=== PATIENT | female | born 1950 | race Caucasian/White ===

== ENCOUNTER → 2024-05-18 07:16 | Outpatient (REF) | payer OTHER, SELFPAY ==
[2024-05-18 09:48] LABS: % Basophils 0.7 % (0-2); % Eosinophils 2.7 % (0-6); % Immature Granulocytes 0.3 % (0-0.5); % Lymphocytes 19.4 % (20.5-51.1); % Monocytes 6.8 % (1.7-9.3); % Neutrophils 70.1 % (42.2-75.2); Absolute Basophils 0.1 10^3/uL (0-0.2); Absolute Eosinophils 0.2 10^3/uL (0-0.7); Absolute Lymphocytes 1.5 10^3/uL (1.2-3.4); Absolute Monocytes 0.5 10^3/uL (0.1-0.6); Absolute Neutrophils 5.3 10^3/uL (1.4-6.5); Hemoglobin 12.4 g/dL (12.0-16.0); Mean Corp Hgb Conc. 33.5 g/dL (33.0-37.0); Mean Corpuscular Hgb 28.8 pg (27.0-31.0); Mean Corpuscular Volume 85.8 fL (81.0-99.0); Mean Platelet Volume 9.6 fL (7.4-10.4); Nucleated Red Blood Cells % 0 %; Platelet Count 395 10^3/uL (130-400); Red Blood Cell Count 4.31 10^6/uL (4.20-5.40); Red Cell Dist. Width 12.7 % (11.5-14.5); White Blood Cell Count 7.5 10^3/uL (4.8-10.8)
[2024-05-18 10:08] LABS: ALT (SGPT) 31 U/L (0-35); AST (SGOT) 28 U/L (14-36); Albumin 4.4 g/dl (3.5-5.0); Alkaline Phosphatase 69 U/L (38-126); Blood Urea Nitrogen 15 mg/dl (7-17); Calcium 9.7 mg/dl (8.4-10.2); Carbon Dioxide 31 mmol/L (22-30); Chloride 99 mmol/L (98-107); Glucose 114 mg/dl (70-99); HDL Cholesterol 80 mg/dl; LDL Cholesterol, Calculated 48 mg/dl; Potassium 4.3 mmol/L (3.5-5.1); Sodium 142 mmol/L (135-145); Total Bilirubin 0.4 mg/dl (0.2-1.3); Total Cholesterol 142 mg/dl (50-199); Total Protein 7.2 g/dl (6.3-8.2); Triglyceride 73 mg/dl (10-149); Very Low Density Lipoprotein 14 mg/dl (0-30); eGFR > 60.00
[2024-05-18 10:16] LABS: Glycohemoglobin (HgbA1c) 6.1 % (4.0-5.6)
[2024-05-18 10:36] LABS: TSH 2.01 uIU/ml (0.47-4.68)
== END ==
LOC: HWLAB 07:16
PROVIDERS: ATTENDING PHYSICIAN Nurse Practitioner
DX: I10 Essential (primary) hypertension (principal); R73.03 Prediabetes; D86.9 Sarcoidosis, unspecified; I45.10 Unspecified right bundle-branch block; Z68.41 Body mass index [BMI] 40.0-44.9, adult
CPT/HCPCS: 36415; 80053; 80061; 83036; 84443; 85025

== ENCOUNTER → 2024-06-13 07:47 | Outpatient (REF) | payer OTHER, SELFPAY | LOC: HWWDC 07:47 | PROVIDERS: ATTENDING PHYSICIAN Nurse Practitioner | DX: Z12.31 Encounter for screening mammogram for malignant neoplasm of breast (principal); Z13.820 Encounter for screening for osteoporosis | CPT/HCPCS: 77063; 77067; 77080 ==

== ENCOUNTER → 2024-08-31 09:34 | Outpatient (REF) | payer OTHER, SELFPAY | LOC: RAD 09:34 | PROVIDERS: ATTENDING PHYSICIAN Nurse Practitioner Adult Health; FAMILY PHYSICIAN Internal Medicine | DX: D86.9 Sarcoidosis, unspecified (principal); R05.3 Chronic cough; J98.4 Other disorders of lung | CPT/HCPCS: 71046 ==

== ENCOUNTER → 2025-03-26 07:33 | Outpatient (REF) | payer OTHER, SELFPAY ==
[2025-03-26 12:57] LABS: Lyme Antibody Screen, EIA Negative (Negative)
== END ==
LOC: HWLAB 07:33
PROVIDERS: ATTENDING PHYSICIAN Nurse Practitioner
DX: A69.20 Lyme disease, unspecified (principal)
CPT/HCPCS: 36415; 86618

== ENCOUNTER → 2025-04-25 11:26 | Outpatient (REF) | payer OTHER, SELFPAY ==
[2025-04-25 16:18] LABS: Blood Urea Nitrogen 18 mg/dl (7-17); Calcium 10.3 mg/dl (8.4-10.2); Carbon Dioxide 31 mmol/L (22-30); Chloride 101 mmol/L (98-107); Glucose 106 mg/dl (70-99); Potassium 4.7 mmol/L (3.5-5.1); Sodium 138 mmol/L (135-145); eGFR > 60.00
[2025-04-25 16:23] LABS: Hematocrit 36.1 % (37.0-47.0); Hemoglobin 11.5 g/dL (12.0-16.0); Mean Corp Hgb Conc. 31.9 g/dL (33.0-37.0); Mean Corpuscular Volume 84.0 fL (81.0-99.0); Nucleated Red Blood Cells % 0 %; Platelet Count 474 10^3/uL (130-400); Red Cell Dist. Width 14.3 % (11.5-14.5)
== END ==
LOC: HWLAB 11:26
PROVIDERS: ATTENDING PHYSICIAN Orthopaedic Surgery; FAMILY PHYSICIAN Internal Medicine
DX: Z01.818 Encounter for other preprocedural examination (principal)
CPT/HCPCS: 36415; 80048; 85025

== ENCOUNTER → 2025-06-18 10:10 | Outpatient (REF) | payer OTHER, SELFPAY ==
[2025-06-18 11:23] LABS: ALT (SGPT) 28 U/L (0-35); AST (SGOT) 21 U/L (14-36); Albumin 4.1 g/dl (3.5-5.0); Alkaline Phosphatase 79 U/L (38-126); Blood Urea Nitrogen 30 mg/dl (7-17); Calcium 10.1 mg/dl (8.4-10.2); Carbon Dioxide 31 mmol/L (22-30); Chloride 96 mmol/L (98-107); Glucose 120 mg/dl (70-99); Potassium 4.1 mmol/L (3.5-5.1); Sodium 141 mmol/L (135-145); Total Protein 7.4 g/dl (6.3-8.2); eGFR 36.34
== END ==
LOC: REG 10:10
PROVIDERS: ATTENDING PHYSICIAN Nurse Practitioner
DX: R10.9 Unspecified abdominal pain (principal)
CPT/HCPCS: 36415; 80053

== ENCOUNTER → 2025-06-20 13:36 | Outpatient (REF) | payer OTHER, SELFPAY | LOC: HWRAD 13:36 | PROVIDERS: ATTENDING PHYSICIAN Nurse Practitioner | DX: R10.9 Unspecified abdominal pain (principal); R10.32 Left lower quadrant pain | CPT/HCPCS: 74176 ==

== ENCOUNTER → 2025-06-27 08:15 | Outpatient (REF) | payer OTHER, SELFPAY ==
[2025-06-27 09:36] LABS: Hematocrit 33.9 % (37.0-47.0); Hemoglobin 10.8 g/dL (12.0-16.0); Mean Corp Hgb Conc. 31.9 g/dL (33.0-37.0); Mean Corpuscular Volume 83.7 fL (81.0-99.0); Nucleated Red Blood Cells % 0 %; Platelet Count 571 10^3/uL (130-400); Red Cell Dist. Width 13.9 % (11.5-14.5)
[2025-06-27 09:40] LABS: INR 0.99; PT 13.6 Sec (11.4-14.6)
[2025-06-27 10:11] LABS: ALT (SGPT) 28 U/L (0-35); AST (SGOT) 22 U/L (14-36); Albumin 4.0 g/dl (3.5-5.0); Alkaline Phosphatase 77 U/L (38-126); Blood Urea Nitrogen 36 mg/dl (7-17); Calcium 9.4 mg/dl (8.4-10.2); Carbon Dioxide 28 mmol/L (22-30); Chloride 96 mmol/L (98-107); Glucose 122 mg/dl (70-99); Potassium 3.4 mmol/L (3.5-5.1); Sodium 137 mmol/L (135-145); Total Protein 7.0 g/dl (6.3-8.2); eGFR 20.68
[2025-06-27 10:36] LABS: CEA 2.55 ng/ml
[2025-06-28 18:52] LABS: CA 125 21.8 U/mL (0-35)
== END ==
LOC: HWLAB 08:15
PROVIDERS: ATTENDING PHYSICIAN Obstetrics & Gynecology Gynecologic Oncology; FAMILY PHYSICIAN Internal Medicine; REFERRING PHYSICIAN Surgery
DX: C54.1 Malignant neoplasm of endometrium (principal); R93.5 Abnormal findings on diagnostic imaging of other abdominal regions, including retroperitoneum
CPT/HCPCS: 36415; 80053; 82378; 85025; 85610; 86304

== ENCOUNTER → 2025-07-18 11:18 | Outpatient (REF) | payer OTHER, SELFPAY ==
[2025-07-18 12:17] LABS: Hematocrit 36.5 % (37.0-47.0); Hemoglobin 12.2 g/dL (12.0-16.0); Mean Corp Hgb Conc. 33.4 g/dL (33.0-37.0); Mean Corpuscular Volume 79.3 fL (81.0-99.0); Nucleated Red Blood Cells % 0 %; Platelet Count 567 10^3/uL (130-400); Red Cell Dist. Width 15.6 % (11.5-14.5)
[2025-07-18 13:11] LABS: ALT (SGPT) 20 U/L (0-35); AST (SGOT) 16 U/L (14-36); Albumin 3.8 g/dl (3.5-5.0); Alkaline Phosphatase 94 U/L (38-126); Amylase 67 U/L (30-110); Blood Urea Nitrogen 116 mg/dl (7-17); Calcium 9.2 mg/dl (8.4-10.2); Carbon Dioxide 23 mmol/L (22-30); Chloride 92 mmol/L (98-107); Glucose 134 mg/dl (70-99); LDH 222 U/L (120-246); Lipase 284 U/L (23-300); Potassium 3.6 mmol/L (3.5-5.1); Sodium 130 mmol/L (135-145); Total Protein 7.0 g/dl (6.3-8.2)
[2025-07-18 13:20] LABS: eGFR 9.00
[2025-07-18 14:02] LABS: TSH 2.82 uIU/ml (0.47-4.68)
[2025-07-19 19:19] LABS: CA 125 23.7 U/mL (0-35)
== END ==
LOC: REG 11:18
PROVIDERS: ATTENDING PHYSICIAN Obstetrics & Gynecology Gynecologic Oncology
DX: C54.1 Malignant neoplasm of endometrium (principal); C78.6 Secondary malignant neoplasm of retroperitoneum and peritoneum
CPT/HCPCS: 36415; 80053; 82150; 83615; 83690; 84443; 85025; 86304